=== PATIENT | male | born 1990 | race Caucasian/White ===

== ENCOUNTER 2018-04-21 09:40 | Emergency (ER) | payer OTHER ==
[2018-04-21 10:02] VITALS: RESP 18
--- NOTE | 2018-04-21 10:59 | XR ---
EXAMINATION TYPE: XR shoulder complete RT DATE OF EXAM: 04/21/2018 COMPARISON: NONE HISTORY: Pain TECHNIQUE: Three views are submitted. FINDINGS: The osseous structures are intact. There is no acute fracture or dislocation. Slight elevation of th e clavicle relative the acromion. IMPRESSION: 1. Clavicle appears to be elevated relative to the acromium correlate for AC joint separation. MRI co uld BE obtained for further evaluation.
--- NOTE | 2018-04-21 11:14 | ED ---
Upper Extremity HPI - General Chief Complaint: Extremity Injury, Upper Stated Complaint: shoulder pain Time Seen by Provider: 04/21/18 10:31 Source: patient, RN notes reviewed Mode of arrival: ambulatory Limitations: no limitations - History of Present Illness Initial Comments: 27-year-old male presents emergency Department chief complaint of right shoulder pain. Patient states that has been bothersome over the last week. Patient does repetitive lifting at work. States is worse when he lifts up over her shoulder height. Patient denies any paresthesias he is [id number] no other traumatic injuries. - Related Data Home Medications Medication Instructions Recorded Confirmed Ibuprofen [Advil] 400 mg PO Q8HR PRN 04/21/18 04/21/18 Naproxen Sodium [Aleve] 440 mg PO DAILY PRN 04/21/18 04/21/18 Previous Rx's Medication Instructions Recorded Ibuprofen [Motrin] 600 mg PO Q8HR PRN #30 tab 04/21/18 Allergies Allergy/AdvReac Type Severity Reaction Status Date / Time No Known Allergies Allergy Verified 04/21/18 10:06 Review of Systems ROS Statement: Those systems with pertinent positive or pertinent negative responses have been documented in the HPI. ROS Other: All systems not noted in ROS Statement are negative. Past Medical History Past Medical History: No Reported History History of Any Multi-Drug Resistant Organisms: None Reported Past Surgical History: No Surgical Hx Reported Past Psychological History: No Psychological Hx Reported Smoking Status: Current every day smoker Past Alcohol Use History: None Reported Past Drug Use History: Marijuana General Exam Limitations: no limitations General appearance: alert, in no apparent distress Neck exam: Present: normal inspection. Absent: tenderness, meningismus, lymphadenopathy Respiratory exam: Present: normal lung sounds bilaterally. Absent: respiratory distress, wheezes, rales, rhonchi, stridor Cardiovascular Exam: Present: regular rate, normal rhythm, normal heart sounds. Absent: systolic murmur, diastolic murmur, rubs, gallop, clicks Extremities exam: Present: other (Right shoulder full range of motion neurovascular intact no obvious deformity there is mild tenderness over the before meals joint, over the bicipital groove region. Patient has mild discomfort with neers impingement) Course Vital Signs 04/21/18 10:00 Temperature 97.5 F L Pulse Rate 54 L Respiratory 18 Rate Blood Pressure 143/89 O2 Sat by Pulse 100 Oximetry Medical Decision Making - Medical Decision Making 27-year-old male presented for right shoulder pain. Patient had x-rays which shows mild before meals separation. Patient symptoms more consistent with rotator cuff tendinitis from overuse. Patient will follow-up with orthopedics and be placed on anti-inflammatories. Disposition Clinical Impression: Rotator cuff tendinitis, AC separation Disposition: HOME SELF-CARE Condition: Stable Instructions: Rotator Cuff Tendinitis (ED) Additional Instructions: Please return to the Emergency Department if symptoms worsen or any other concerns. Prescriptions: Ibuprofen [Motrin] 600 mg PO Q8HR PRN #30 tab PRN Reason: Pain Is patient prescribed a controlled substance at d/c from ED?: No Referrals: Arnulfo Parisi MD [STAFF PHYSICIAN] - 1-2 days Time of Disposition: 11:14
[2018-04-21 11:32] VITALS: BP 125/83; PULSE 61; TEMP 98.1
== END 2018-04-21 11:30 | disposition home or self-care (01) ==
LOC: EC 09:40
DX: S43.101A Unspecified dislocation of right acromioclavicular joint, initial encounter (principal); M70.811 Other soft tissue disorders related to use, overuse and pressure, right shoulder; F17.200 Nicotine dependence, unspecified, uncomplicated; X50.3XXA Overexertion from repetitive movements, initial encounter; Y93.89 Activity, other specified; Y92.69 Other specified industrial and construction area as the place of occurrence of the external cause; Y99.0 Civilian activity done for income or pay
CPT/HCPCS: 99283

== ENCOUNTER 2021-07-29 10:46 | Emergency (ER) | payer BC ==
[2021-07-29 11:04] VITALS: BP 137/88; PULSE 81; RESP 18; TEMP 97.7
[2021-07-29] MEDS ORDERED: KETOROLAC 15 MG/ML 1 ML VIAL IVP STA (11:35)
[2021-07-29] MEDS ORDERED: DEXAMETHASONE SOD PHOSPHATE 10 MG/ML 1 ML VIAL IVP STA (11:39)
--- NOTE | 2021-07-29 11:53 | ED ---
Back Pain HPI - General Chief Complaint: Back Pain/Injury Stated Complaint: pain in buttocks Time Seen by Provider: 07/29/21 11:23 Source: patient Limitations: no limitations - History of Present Illness Initial Comments: Patient is year-old otherwise healthy male who presents with left lower back/hip pain 1 week. No mechanism of injury. Patient states that he woke up with pain in the lower back region with radiation to the left hip and thigh. He describes it as a constant cramp, 10/10 in severity. Patient has never experienced this pain before. Standing and sitting makes the pain worse. The pain is alleviated by laying on his side. The patient took Advil which relieved pain for first couple doses but is now refractory. Patient denies paresthesias/numbness in the lower back and left lower extremity. He denies chest pain, shortness of breath, fever, chills, saddle anesthesia, urinary incontinence, urinary retention, and change in bowel movements. - Related Data Home Medications Medication Instructions Recorded Confirmed Ibuprofen [Advil] 400 mg PO Q8HR PRN 04/21/18 04/21/18 Naproxen Sodium [Aleve] 440 mg PO DAILY PRN 04/21/18 04/21/18 Previous Rx's Medication Instructions Recorded Ibuprofen [Motrin] 600 mg PO Q8HR PRN #30 tab 04/21/18 Cyclobenzaprine [Flexeril] 10 mg PO HS #7 tab 07/29/21 Ibuprofen [Motrin] 800 mg PO Q6HR #30 tab 07/29/21 Lidocaine [Lidoderm 5% Patch] 1 patch TRANSDERM DAILY #14 patch 07/29/21 Allergies Allergy/AdvReac Type Severity Reaction Status Date / Time No Known Allergies Allergy Verified 07/29/21 11:04 Review of Systems ROS Statement: Those systems with pertinent positive or pertinent negative responses have been documented in the HPI. ROS Other: All systems not noted in ROS Statement are negative. Past Medical History Past Medical History: No Reported History History of Any Multi-Drug Resistant Organisms: None Reported Past Surgical History: No Surgical Hx Reported Past Psychological History: No Psychological Hx Reported Past Alcohol Use History: None Reported Past Drug Use History: Marijuana General Exam Limitations: no limitations General appearance: alert, in no apparent distress Head exam: Present: atraumatic, normocephalic, normal inspection Eye exam: Present: normal appearance, PERRL, EOMI. Absent: scleral icterus, conjunctival injection, periorbital swelling ENT exam: Present: normal exam, mucous membranes moist Neck exam: Present: normal inspection. Absent: tenderness, meningismus, lymphadenopathy Respiratory exam: Present: normal lung sounds bilaterally. Absent: respiratory distress, wheezes, rales, rhonchi, stridor Cardiovascular Exam: Present: regular rate, normal rhythm, normal heart sounds. Absent: systolic murmur, diastolic murmur, rubs, gallop, clicks GI/Abdominal exam: Present: soft, normal bowel sounds. Absent: distended, tenderness, guarding, rebound, rigid Back exam: Present: full ROM, tenderness (left lumbar/sacral region), paraspinal tenderness. Absent: CVA tenderness (R), CVA tenderness (L), muscle spasm, vertebral tenderness, rash noted Expanded Back exam: Positive Straight Leg Raise: Left Neurological exam: Present: alert, oriented X3, CN II-XII intact Psychiatric exam: Present: normal affect, normal mood Skin exam: Present: warm, dry, intact, normal color. Absent: rash Course Vital Signs 07/29/21 11:00 Temperature 97.7 F Pulse Rate 81 Respiratory 18 Rate Blood Pressure 137/88 O2 Sat by Pulse 100 Oximetry Medical Decision Making - Medical Decision Making Vitals are stable. Patient is laying comfortable in bed. Patient reports pain is improved with medication. Lumbosacral x-ray reveals facet arthropathy at L5- S1. Correlate with MRA if concerned for disc herniation. Gave patient a list of orthopedic specialists for further evaluation and treatment. Will discharge with pain medication. Disposition Clinical Impression: Facet arthritis of lumbosacral region Disposition: HOME SELF-CARE Condition: Good Additional Instructions: Report to one of the orthopedic specialists we discussed her MRI, further evaluation and treatment. Take medications as instructed. Return to emergency department if there is uncontrolled pain, urinary incontinence, or urinary retention. Is patient prescribed a controlled substance at d/c from ED?: No Referrals: None,Stated [Primary Care Provider] - 1-2 days Time of Disposition: 13:16
--- NOTE | 2021-07-29 12:31 | XR ---
EXAM TYPE: LUMBAR SPINE X RAY SERIES COMPARISON: NONE HISTORY: Pain TECHNIQUE: 4 views are submitted. FINDINGS: Alignment is anatomic. The pedicles are intact. The transverse processes are intact. There is no s pondylolysis or spondylolisthesis. Facet arthropathy L5-S1. IMPRESSION: 1. Facet arthropathy L5-S1. If concern for disc herniation correlate with MRI.
[2021-07-29] MEDS ORDERED: DEXAMETHASONE SOD PHOSPHATE 10 MG/ML 1 ML VIAL IM STA (12:37)
[2021-07-29] MEDS ORDERED: KETOROLAC 15 MG/ML 1 ML VIAL IM STA (12:38)
== END 2021-07-29 13:28 | disposition home or self-care (01) ==
LOC: EC 10:46
DX: M47.817 Spondylosis without myelopathy or radiculopathy, lumbosacral region (principal)
CPT/HCPCS: 72110; 99283; 96372; J1100; J1885